=== PATIENT | male | born 1985 | race African-American/Black ===

== ENCOUNTER 2022-03-26 14:46 | Inpatient (IN) | payer OTHER ==
[~2022-03-26] VITALS: Ht 175.3 cm; Wt 86.2 kg
[2022-03-26] MEDS ORDERED: ACETAMINOPHEN 325 MG TABLET PO PRN (16:30)
[2022-03-26 19:57] VITALS: BP 160/72
[2022-03-26 20:00] VITALS: BP 160/72
[2022-03-26] MEDS: CYCLOPENTOLATE HCL 1% 2 ML OPHTHALMIC SOLUTION OD SCH (20:55)
[2022-03-26] MEDS: DICLOFENAC SODIUM 1% 100 GM GEL [2GM] TP SCH (20:55)
[2022-03-26] MEDS: SENNOSIDES 8.6 MG TABLET PO SCH (20:56)
[2022-03-26] MEDS: CYCLOBENZAPRINE HCL 10 MG TABLET PO PRN (20:56)
[2022-03-26] MEDS: MELATONIN 5 MG TABLET PO PRN (20:57)
[2022-03-26] MEDS: GABAPENTIN 100 MG CAPSULE PO SCH (20:57)
[2022-03-26] MEDS: ETHYL ALCOHOL 62% ANTISEPTIC NASAL SANITIZER 0.6 ML AMPUL NASAL SCH (20:58)
[2022-03-26 22:00] VITALS: BP 135/78
[2022-03-27 07:14] LABS: BASOPHILS % (AUTO) 0.4 % (0.0-2.0); EOSINOPHILS % (AUTO) 3.6 % (1.0-6.0); HEMATOCRIT 46.2 % (41-53); HEMOGLOBIN 15.5 g/dL (13.5-17.5); LYMPHOCYTES # (AUTO) 1.7 K/uL (1.0-4.8); LYMPHOCYTES % (AUTO) 15.2 % (22.0-44.0); MEAN CORPUSCULAR HEMOGLOBIN 29.1 pg (26.0-34.0); MEAN CORPUSCULAR HGB CONC 33.6 G/dL (31.0-37.0); MEAN CORPUSCULAR VOLUME 87 fL (80-100); MONOCYTES # (AUTO) 0.7 K/uL (0.1-1.0); MONOCYTES % (AUTO) 6.6 % (2.0-9.0); NEUTROPHILS # (AUTO) 8.3 K/uL (1.8-7.7); NEUTROPHILS % (AUTO) 74.2 % (40.0-70.0); PLATELET COUNT (AUTO) 356 K/uL (150-450); RED BLOOD CELL COUNT(AUTO) 5.34 MIL/uL (4.50-5.90); RED CELL DISTRIBUTION WIDTH 13.6 % (11.5-14.5)
[2022-03-27 07:35] LABS: ALANINE AMINOTRANSFERASE 33 U/L (12-78); ALBUMIN 3.5 g/dL (3.4-5.0); ALKALINE PHOSPHATASE 72 U/L (46-116); ANION GAP 5 mmol/L (8-16); ASPARTATE AMINOTRANSFERASE 17 U/L (15-37); BILIRUBIN,TOTAL 0.8 mg/dL (0.1-1.0); CALCIUM, TOTAL 9.3 mg/dL (8.8-10.5); CARBON DIOXIDE 31 mmol/L (22-29); CHLORIDE 105 mmol/L (98-107); CREATININE 1.43 mg/dL (0.60-1.30); GLUCOSE,RANDOM 93 mg/dL (70-110); POTASSIUM 4.2 mmol/L (3.5-5.1); SODIUM SERUM 141 mmol/L (136-145); TOTAL PROTEIN, SERUM 8.1 g/dL (6.4-8.2); UREA NITROGEN, BLOOD 17 mg/dL (7-18)
[2022-03-27 07:36] LABS: GLOMERULAR FILTR. RATE CALC > 60 mL/min (>60)
[2022-03-27 08:02] VITALS: BP 141/96
[2022-03-27] MEDS: LIDOCAINE 5% TRANSDERMAL PATCH TD SCH ×2 (09:00→10:01)
[2022-03-27] MEDS ORDERED: ENOXAPARIN SODIUM 40 MG/0.4 ML PF SYRINGE SQ SCH (09:00)
[2022-03-27] MEDS: DICLOFENAC SODIUM 1% 100 GM GEL [2GM] TP SCH ×5 (09:00→21:48)
[2022-03-27] MEDS ORDERED: MAGNESIUM HYDROXIDE SUSPENSION 30 ML UDCUP PO PRN (09:45)
[2022-03-27] MEDS: ETHYL ALCOHOL 62% ANTISEPTIC NASAL SANITIZER 0.6 ML AMPUL NASAL SCH ×2 (09:59→21:28)
[2022-03-27] MEDS: CYCLOPENTOLATE HCL 1% 2 ML OPHTHALMIC SOLUTION OD SCH ×3 (09:59→21:00)
[2022-03-27] MEDS: SENNOSIDES 8.6 MG TABLET PO SCH ×2 (10:00→22:00)
[2022-03-27] MEDS: POLYETHYLENE GLYCOL 3350 17 GM PACKET PO SCH (10:00)
[2022-03-27] MEDS: GABAPENTIN 100 MG CAPSULE PO SCH ×3 (10:00→21:28)
[2022-03-27] MEDS: SERTRALINE HCL 50 MG TABLET PO SCH (10:00)
[2022-03-27] MEDS: HYDROCHLOROTHIAZIDE 25 MG TABLET PO SCH (10:20)
[2022-03-27 20:00] VITALS: BP 146/87
[2022-03-27] MEDS: -LIDODERM PATCH NOTE- MISC SCH (21:00)
[2022-03-27] MEDS: MELATONIN 5 MG TABLET PO PRN (21:28)
[2022-03-27] MEDS: IBUPROFEN 800 MG TABLET PO PRN (21:50)
[2022-03-27] MEDS: HEPARIN SODIUM,PORCINE 5,000 UNITS/ML VIAL SQ SCH (21:51)
[2022-03-27 21:59] VITALS: BP 148/74
[2022-03-28 08:04] VITALS: BP 112/61
[2022-03-28] MEDS: HEPARIN SODIUM,PORCINE 5,000 UNITS/ML VIAL SQ SCH (08:25)
[2022-03-28] MEDS: ETHYL ALCOHOL 62% ANTISEPTIC NASAL SANITIZER 0.6 ML AMPUL NASAL SCH ×2 (08:25→20:43)
[2022-03-28] MEDS: CYCLOBENZAPRINE HCL 10 MG TABLET PO PRN (08:25)
[2022-03-28] MEDS: SENNOSIDES 8.6 MG TABLET PO SCH ×2 (08:25→20:44)
[2022-03-28] MEDS: SERTRALINE HCL 50 MG TABLET PO SCH (08:25)
[2022-03-28] MEDS: GABAPENTIN 100 MG CAPSULE PO SCH ×3 (08:25→20:42)
[2022-03-28] MEDS: POLYETHYLENE GLYCOL 3350 17 GM PACKET PO SCH (08:26)
[2022-03-28] MEDS: LIDOCAINE 5% TRANSDERMAL PATCH TD SCH (08:31)
[2022-03-28] MEDS: DICLOFENAC SODIUM 1% 100 GM GEL [2GM] TP SCH ×4 (08:32→20:49)
[2022-03-28] MEDS: CYCLOPENTOLATE HCL 1% 2 ML OPHTHALMIC SOLUTION OD SCH (08:32)
[2022-03-28] MEDS: HYDROCHLOROTHIAZIDE 25 MG TABLET PO SCH (08:35)
[2022-03-28 20:10] VITALS: BP 150/98
[2022-03-28] MEDS: -LIDODERM PATCH NOTE- MISC SCH (20:45)
[2022-03-28] MEDS: MELATONIN 5 MG TABLET PO PRN (20:49)
[2022-03-29 08:00] VITALS: BP 131/77
[2022-03-29] MEDS: DICLOFENAC SODIUM 1% 100 GM GEL [2GM] TP SCH ×4 (09:00→21:03)
[2022-03-29] MEDS: POLYETHYLENE GLYCOL 3350 17 GM PACKET PO SCH (09:00)
[2022-03-29] MEDS: LIDOCAINE 5% TRANSDERMAL PATCH TD SCH (09:00)
[2022-03-29] MEDS: ETHYL ALCOHOL 62% ANTISEPTIC NASAL SANITIZER 0.6 ML AMPUL NASAL SCH ×2 (09:10→21:02)
[2022-03-29] MEDS: GABAPENTIN 100 MG CAPSULE PO SCH ×3 (09:11→21:03)
[2022-03-29] MEDS: SERTRALINE HCL 50 MG TABLET PO SCH (09:12)
[2022-03-29] MEDS: HYDROCHLOROTHIAZIDE 25 MG TABLET PO SCH (09:12)
[2022-03-29] MEDS: SENNOSIDES 8.6 MG TABLET PO SCH (09:12)
[2022-03-29] MEDS: IBUPROFEN 800 MG TABLET PO PRN (09:14)
[2022-03-29] MEDS ORDERED: SENNOSIDES 8.6 MG TABLET PO PRN (10:00)
[2022-03-29] MEDS ORDERED: POLYETHYLENE GLYCOL 3350 17 GM PACKET PO PRN (10:00)
[2022-03-29 10:30] LABS: BASOPHILS % (AUTO) 0.4 % (0.0-2.0); EOSINOPHILS % (AUTO) 1.9 % (1.0-6.0); HEMATOCRIT 51.9 % (41-53); HEMOGLOBIN 16.8 g/dL (13.5-17.5); LYMPHOCYTES # (AUTO) 2.4 K/uL (1.0-4.8); LYMPHOCYTES % (AUTO) 14.9 % (22.0-44.0); MEAN CORPUSCULAR HEMOGLOBIN 28.1 pg (26.0-34.0); MEAN CORPUSCULAR HGB CONC 32.5 G/dL (31.0-37.0); MEAN CORPUSCULAR VOLUME 87 fL (80-100); MONOCYTES # (AUTO) 1.2 K/uL (0.1-1.0); MONOCYTES % (AUTO) 7.7 % (2.0-9.0); NEUTROPHILS # (AUTO) 12.1 K/uL (1.8-7.7); NEUTROPHILS % (AUTO) 75.1 % (40.0-70.0); PLATELET COUNT (AUTO) 428 K/uL (150-450); RED BLOOD CELL COUNT(AUTO) 5.99 MIL/uL (4.50-5.90); RED CELL DISTRIBUTION WIDTH 13.2 % (11.5-14.5)
[2022-03-29] MEDS ORDERED: IOHEXOL 350 MG/ML 100 ML VIAL ONE (17:42)
[2022-03-29] MEDS ORDERED: SODIUM CHLORIDE 0.9% 0 ML ONE (17:42)
[2022-03-29 20:56] VITALS: BP 152/90
[2022-03-29] MEDS: -LIDODERM PATCH NOTE- MISC SCH (21:00)
[2022-03-29] MEDS: MELATONIN 5 MG TABLET PO PRN (21:03)
[2022-03-30 06:00] VITALS: BP 134/85
[2022-03-30 08:01] VITALS: BP 132/80
[2022-03-30] MEDS: LIDOCAINE 5% TRANSDERMAL PATCH TD SCH (09:00)
[2022-03-30] MEDS: SERTRALINE HCL 50 MG TABLET PO SCH (09:18)
[2022-03-30] MEDS: HYDROCHLOROTHIAZIDE 25 MG TABLET PO SCH (09:19)
[2022-03-30] MEDS: GABAPENTIN 100 MG CAPSULE PO SCH ×3 (09:19→20:33)
[2022-03-30] MEDS: DICLOFENAC SODIUM 1% 100 GM GEL [2GM] TP SCH ×4 (09:32→20:33)
[2022-03-30] MEDS: ETHYL ALCOHOL 62% ANTISEPTIC NASAL SANITIZER 0.6 ML AMPUL NASAL SCH ×2 (09:32→20:35)
[2022-03-30] MEDS: IBUPROFEN 800 MG TABLET PO PRN ×2 (12:31→20:33)
[2022-03-30 16:41] LABS: APPEARANCE,URINE CLEAR (CLEAR); BILIRUBIN,URINE NEGATIVE (NEGATIVE); GLUCOSE, URINE (UA) NEGATIVE (NEGATIVE); KETONES,URINE NEGATIVE (NEGATIVE); LEUKOCYTE ESTERASE ,URINE NEGATIVE (NEGATIVE); NITRATE,URINE NEGATIVE (NEGATIVE); OCCULT BLOOD,URINE TRACE (NEGATIVE); PROTEIN,URINE NEGATIVE (NEGATIVE); SPECIFIC GRAVITIY, URINE 1.013 (1.003-1.030); UROBILINOGEN,URINE <=1.0 mg/dL (<=1.0)
[2022-03-30 17:03] LABS: BACTERIA,URINE None Seen /HPF (None Seen); RBC,URINE 0-2 /HPF (0-2); SQUAMOUS EPITHELIAL CELL,UR Few /LPF (None Seen); WBC,URINE None Seen /HPF (0-5)
[2022-03-30] MEDS: -LIDODERM PATCH NOTE- MISC SCH (20:17)
[2022-03-30 20:33] VITALS: BP 134/74
[2022-03-30] MEDS: MELATONIN 5 MG TABLET PO PRN (20:33)
[2022-03-31 07:00] LABS: ANION GAP 9 mmol/L (8-16); CALCIUM, TOTAL 9.8 mg/dL (8.8-10.5); CARBON DIOXIDE 28 mmol/L (22-29); CHLORIDE 100 mmol/L (98-107); CREATININE 1.49 mg/dL (0.60-1.30); GLOMERULAR FILTR. RATE CALC > 60 mL/min (>60); GLUCOSE,RANDOM 108 mg/dL (70-110); POTASSIUM 3.9 mmol/L (3.5-5.1); SODIUM SERUM 137 mmol/L (136-145); UREA NITROGEN, BLOOD 19 mg/dL (7-18)
[2022-03-31 08:00] VITALS: BP 142/75
[2022-03-31] MEDS: DICLOFENAC SODIUM 1% 100 GM GEL [2GM] TP SCH ×4 (08:06→20:10)
[2022-03-31] MEDS: ETHYL ALCOHOL 62% ANTISEPTIC NASAL SANITIZER 0.6 ML AMPUL NASAL SCH ×2 (08:06→21:01)
[2022-03-31] MEDS: GABAPENTIN 100 MG CAPSULE PO SCH ×3 (08:06→20:09)
[2022-03-31] MEDS: LIDOCAINE 5% TRANSDERMAL PATCH TD SCH (08:07)
[2022-03-31] MEDS: SERTRALINE HCL 50 MG TABLET PO SCH (08:07)
[2022-03-31] MEDS ORDERED: AmLODIPine BESYLATE 2.5 MG TABLET PO SCH (09:00)
[2022-03-31] MEDS: ACETAMINOPHEN 325 MG TABLET PO PRN (17:01)
[2022-03-31 20:01] VITALS: BP 151/89
[2022-03-31] MEDS: MELATONIN 5 MG TABLET PO PRN (20:09)
[2022-03-31] MEDS: -LIDODERM PATCH NOTE- MISC SCH (21:00)
[2022-04-01 08:39] VITALS: BP 140/88
[2022-04-01] MEDS: DICLOFENAC SODIUM 1% 100 GM GEL [2GM] TP SCH ×4 (09:00→20:54)
[2022-04-01] MEDS: LIDOCAINE 5% TRANSDERMAL PATCH TD SCH (09:00)
[2022-04-01] MEDS: SERTRALINE HCL 50 MG TABLET PO SCH (10:12)
[2022-04-01] MEDS: ETHYL ALCOHOL 62% ANTISEPTIC NASAL SANITIZER 0.6 ML AMPUL NASAL SCH ×2 (10:12→20:53)
[2022-04-01] MEDS: AmLODIPine BESYLATE 5 MG TABLET PO SCH (10:13)
[2022-04-01] MEDS: GABAPENTIN 100 MG CAPSULE PO SCH ×2 (17:00→20:53)
[2022-04-01 20:11] VITALS: BP 144/74
[2022-04-01] MEDS: MELATONIN 5 MG TABLET PO PRN (20:54)
[2022-04-01] MEDS: -LIDODERM PATCH NOTE- MISC SCH (21:00)
[2022-04-01] MEDS ORDERED: GABA-1216 PO (21:32)
[2022-04-01] MEDS ORDERED: AMLO-257 PO (21:32)
[2022-04-01] MEDS ORDERED: DICL100G51 TP (21:32)
[2022-04-01] MEDS ORDERED: SERT-158 PO (21:32)
[2022-04-02] MEDS: ACETAMINOPHEN 325 MG TABLET PO PRN (07:08)
[2022-04-02 08:05] VITALS: BP 133/82
[2022-04-02] MEDS: DICLOFENAC SODIUM 1% 100 GM GEL [2GM] TP SCH (09:00)
[2022-04-02] MEDS: LIDOCAINE 5% TRANSDERMAL PATCH TD SCH (09:00)
[2022-04-02] MEDS: AmLODIPine BESYLATE 5 MG TABLET PO SCH (09:43)
[2022-04-02] MEDS: ETHYL ALCOHOL 62% ANTISEPTIC NASAL SANITIZER 0.6 ML AMPUL NASAL SCH (09:43)
[2022-04-02] MEDS: SERTRALINE HCL 50 MG TABLET PO SCH (09:43)
[2022-04-02] MEDS: GABAPENTIN 100 MG CAPSULE PO SCH (09:43)
[2022-04-02] MEDS ORDERED: SERT-439 PO (10:09)
[2022-04-02] MEDS ORDERED: GABA-1216 PO (10:09)
[2022-04-02] MEDS ORDERED: AMLO-257 PO (10:09)
[2022-04-02 10:12] VITALS: BP 133/82
== END 2022-04-02 11:47 | disposition home or self-care (01) | DRG 552 ==
LOC: EDBD 15:32 → 2WR 15:32
PROVIDERS: ADMIT Physical Medicine & Rehabilitation; ATTEND Physical Medicine & Rehabilitation
DX: M51.17 Intervertebral disc disorders with radiculopathy, lumbosacral region (principal); J98.11 Atelectasis; M51.16 Intervertebral disc disorders with radiculopathy, lumbar region; D72.829 Elevated white blood cell count, unspecified; D75.A Glucose-6-phosphate dehydrogenase (G6PD) deficiency without anemia; E66.9 Obesity, unspecified; F32.A Depression, unspecified; I12.9 Hypertensive chronic kidney disease with stage 1 through stage 4 chronic kidney disease, or unspecified chronic kidney disease; K59.00 Constipation, unspecified; M47.819 Spondylosis without myelopathy or radiculopathy, site unspecified; R59.0 Localized enlarged lymph nodes; R26.9 Unspecified abnormalities of gait and mobility; R53.81 Other malaise; M54.9 Dorsalgia, unspecified; R16.0 Hepatomegaly, not elsewhere classified; J43.9 Emphysema, unspecified; N18.9 Chronic kidney disease, unspecified; N52.9 Male erectile dysfunction, unspecified; G47.33 Obstructive sleep apnea (adult) (pediatric); G89.29 Other chronic pain; Z79.899 Other long term (current) drug therapy; Z87.891 Personal history of nicotine dependence; Z88.0 Allergy status to penicillin; Z88.2 Allergy status to sulfonamides; Z88.6 Allergy status to analgesic agent; Z68.28 Body mass index [BMI] 28.0-28.9, adult
CPT/HCPCS: 71250; 72192; 74150; 76770; 80048; 80053; 81001; 82164; 85025; 86038; 86592; 87081; 87491; 87591; 93970; 97110; 97116; 97150; 97166; 97530; 97535; 99366; J1644; J1650; J7050; Q9967